=== PATIENT | female | born 1995 | race Caucasian/White ===

== ENCOUNTER 2022-05-23 13:42 | Emergency (ER) | payer OTHER, SELFPAY ==
--- NOTE | ~2022-05-23 | US_ITS ---
EXAMINATION: US ABDOMEN COMPLETE CLINICAL INFORMATION: Epigastric pain. COMPARISON: None TECHNIQUE: Real-time imaging of the abdominal viscera. Today's examination is mildly limited secondary to overlying bowel gas. FINDINGS: PANCREAS: Visualized portions of pancreas are normal in appearance. ABDOMINAL AORTA: The proximal and mid segments are normal in caliber. The distal segment is obscured by overlying bowel gas and therefore not evaluated. INFERIOR VENA CAVA: Visualized portions are normal. LIVER: The liver is normal in size. The liver contour is normal. Liver echogenicity is increased diffusely. No focal hepatic lesion. There is no intrahepatic biliary duct dilatation seen. GALLBLADDER: The gallbladder is physiologically distended. 6 mm echogenic, nonshadowing focus contiguous with the gallbladder wall is most suggestive of a polyp. No definitive shadowing gallstones identified. No gallbladder wall thickening or pericholecystic fluid appreciated. Negative sonographic Messina's sign. COMMON BILE DUCT: Normal in caliber measuring 0.4 cm in diameter. RIGHT KIDNEY: Normal. No hydronephrosis. No renal calculi or focal parenchymal lesions. The kidney measures 11.5 cm in maximum dimension. LEFT KIDNEY: Normal. No hydronephrosis. No renal calculi or focal parenchymal lesions. The kidney measures 11.5 cm in maximum dimension. SPLEEN: Normal. The spleen measures 11.2 cm in maximum dimension. FREE FLUID: None. US/US abdomen complete IMPRESSION: 1. Diffusely increased liver echogenicity. This is a nonspecific finding but most suggestive of hepatic steatosis. Correlation with liver enzymes recommended. 2. Suspected 6 mm gallbladder polyp. Follow-up as clinically indicated.
--- NOTE | ~2022-05-23 | US_ITS ---
EXAMINATION: US OBSTETRICAL ULTRASOUND CLINICAL INFORMATION: Abdominal pain and ovarian pain COMPARISON: None. LMP: Not provided. Gestational age by maternal dates is not provided. Estimated date of delivery by maternal dates is not provided. TECHNIQUE: Ultrasound of the maternal pelvis is performed using transabdominal and transvaginal transducers. Transvaginal imaging is performed due to inadequate visualization transabdominally. M-mode Doppler is also performed. FINDINGS: There is a single intrauterine gestational sac with visible yolk sac, embryo, and cardiac activity. There is no significant subchorionic hemorrhage or hematoma. HR: 127 beats per minute. CRL (crown rump length): 0.6 cm (6 weeks 3 days +/- 4 days). MANJU (estimated date of delivery): 01/13/2023 +/- 4 days. MATERNAL ADNEXA: The right maternal ovary measures 4.0 x 2.6 x 3.8 cm. No adnexal mass. The left maternal ovary measures 3.2 x 2.0 x 2.1 cm. No adnexal mass. Normal color flow in the ovaries bilaterally. Normal arterial and venous spectral Doppler waveforms identified in the ovaries bilaterally. Nabothian cysts are seen in the cervix. There is no significant maternal adnexal mass. No maternal pelvic ascites. US/US OB pelvic and transvaginal IMPRESSION: 1. Single intrauterine gestation with ultrasound gestational age of 6 weeks 3 days +/- 4 days. 2. Estimated date of delivery is 01/13/2023 +/- 4 days. 3. No maternal adnexal mass or pelvic ascites.
--- NOTE | ~2022-05-23 | US_ITS ---
EXAMINATION: US OBSTETRICAL ULTRASOUND CLINICAL INFORMATION: Abdominal pain and ovarian pain COMPARISON: None. LMP: Not provided. Gestational age by maternal dates is not provided. Estimated date of delivery by maternal dates is not provided. TECHNIQUE: Ultrasound of the maternal pelvis is performed using transabdominal and transvaginal transducers. Transvaginal imaging is performed due to inadequate visualization transabdominally. M-mode Doppler is also performed. FINDINGS: There is a single intrauterine gestational sac with visible yolk sac, embryo, and cardiac activity. There is no significant subchorionic hemorrhage or hematoma. HR: 127 beats per minute. CRL (crown rump length): 0.6 cm (6 weeks 3 days +/- 4 days). MANJU (estimated date of delivery): 01/13/2023 +/- 4 days. MATERNAL ADNEXA: The right maternal ovary measures 4.0 x 2.6 x 3.8 cm. No adnexal mass. The left maternal ovary measures 3.2 x 2.0 x 2.1 cm. No adnexal mass. Normal color flow in the ovaries bilaterally. Normal arterial and venous spectral Doppler waveforms identified in the ovaries bilaterally. Nabothian cysts are seen in the cervix. There is no significant maternal adnexal mass. No maternal pelvic ascites. US/US pelvic ovarian doppler IMPRESSION: 1. Single intrauterine gestation with ultrasound gestational age of 6 weeks 3 days +/- 4 days. 2. Estimated date of delivery is 01/13/2023 +/- 4 days. 3. No maternal adnexal mass or pelvic ascites.
[2022-05-23 13:46] VITALS: BP 133/85; PULSE 101; RESP 18; TEMP 36.8; O2SAT 100; BMI 34.3
--- NOTE | 2022-05-23 13:46 | ED.ABDPAIN ---
HPI - Abdominal Pain General Chief Complaint: Abdominal Pain <CHASITY Rodgers - Last Filed: 05/23/22 13:50> Stated Complaint: Stomach pain <CHASITY Rodgers - Last Filed: 05/23/22 13:50> Time Seen by Provider: 05/23/22 14:12 <CHASITY Rodgers - Last Filed: 05/23/22 13:50> Source: patient <Grey Kaufman MD - Last Filed: 05/23/22 15:58> Mode of arrival: ambulatory <Grey Kaufman MD - Last Filed: 05/23/22 15:58> Limitations: no limitations <Grey Kaufman MD - Last Filed: 05/23/22 15:58> History of Present Illness HPI narrative: - 27yoF c PMHx of thyroid disease was presenting to the ED with complaints of 3-4 weeks of epigastric and lower abdominal pain near her ovaries. With associated vomiting every morning. Reports that her period is usually irregular. Although she remembers her last menstrual period being approximately 2 months ago although this can be normal for her on occasion. She reports occasional shortness of breath. She denies any other symptoms complaints or concerns at this time. patient states that she has known she has been for 5 days <Grey Kaufman MD - Last Filed: 05/23/22 15:58> MD elicited complaint: abdominal pain <Grey Kaufman MD - Last Filed: 05/23/22 15:58> Onset (ago): week(s) <Grey Kaufman MD - Last Filed: 05/23/22 15:58> Pain Consistency: intermittent <Grey Kaufman MD - Last Filed: 05/23/22 15:58> Location: suprapubic <Grey Kaufman MD - Last Filed: 05/23/22 15:58> Migration to: suprapubic <Grey Kaufman MD - Last Filed: 05/23/22 15:58> Associated symptoms: nausea and vomiting <Grey Kaufman MD - Last Filed: 05/23/22 15:58> Related Data Allergies/Adverse Reactions: Allergies Allergy/AdvReac Type Severity Reaction Status Date / Time aspirin [ASA] Allergy Intermediate RASH/SWELLI Verified 05/23/22 13:44 NG penicillin V Allergy Intermediate Rash Verified 05/23/22 13:44 Penicillins [PENICILLINS] Allergy Intermediate RASH/SWELLI Verified 05/23/22 13:44 NG <CHASITY Rodgers - Last Filed: 05/23/22 13:50> Review of Systems Review of Systems Yes all other systems are reviewed and are negative <Grey Kaufman MD - Last Filed: 05/23/22 15:58> Gastrointestinal: Reports abdominal pain <Grey Kafuman MD - Last Filed: 05/23/22 15:58> Genitourinary: Reports other (no period for 2 months) <Grey Kaufman MD - Last Filed: 05/23/22 15:58> [facility] Social History Social History: Social History Advance Directives: No <CHASITY Rodgers - Last Filed: 05/23/22 13:50> Physical Exam ED Vital Signs: Vital Signs - 24 hr 05/23/22 13:46 05/23/22 15:31 Temperature 98.3 F 98.4 F Pulse Rate 101 H 106 H Respiratory Rate 18 18 Blood Pressure 133/85 110/73 Pulse Oximetry 100 98 Oxygen Delivery Method Room Air Room Air BMI result Body Mass Index 34.3 <CHASITY Rodgers - Last Filed: 05/23/22 13:50> Vital Signs - 24 hr 05/23/22 13:46 05/23/22 15:31 Temperature 98.3 F 98.4 F Pulse Rate 101 H 106 H Respiratory Rate 18 18 Blood Pressure 133/85 110/73 Pulse Oximetry 100 98 Oxygen Delivery Method Room Air Room Air BMI result Body Mass Index 34.3 <Grey Kaufman MD - Last Filed: 05/23/22 15:58> Const General: healthy appearing <Grey Kaufman MD - Last Filed: 05/23/22 15:58> Nutritional Appearance: average body habitus <Grey Kaufman MD - Last Filed: 05/23/22 15:58> Orientation/consciousness: oriented to person and patient oriented x3 <Grey Kaufman MD - Last Filed: 05/23/22 15:58> Limitations: no limitations <Grey Kaufman MD - Last Filed: 05/23/22 15:58> HENMT Head: Yes normal to inspection <Grey Kaufman MD - Last Filed: 05/23/22 15:58> Ears: external ears normal <Grey Kaufman MD - Last Filed: 05/23/22 15:58> General nose exam: Normal external nose present <Grey Kaufman MD - Last Filed: 05/23/22 15:58> Mouth: Normal oral and palatal mucosa present and oropharynx normal <Grey Kaufman MD - Last Filed: 05/23/22 15:58> Throat: Yes posterior oropharynx normal <Grey Kaufman MD - Last Filed: 05/23/22 15:58> Eyes General: appearance normal, both eyes and all related structures <Grey Kaufman MD - Last Filed: 05/23/22 15:58> Neck Neck: Yes normal visual inspection <Grey Kaufman MD - Last Filed: 05/23/22 15:58> Chest Chest palpation & inspection: normal inspection of the chest <Grey Kaufman MD - Last Filed: 05/23/22 15:58> Resp Auscultation: clear to auscultation bilaterally <Grey Kaufman MD - Last Filed: 05/23/22 15:58> Cardio Jugular venous distension: no JVD <Grey Kaufman MD - Last Filed: 05/23/22 15:58> Rate: regular rate <Grey Kaufman MD - Last Filed: 05/23/22 15:58> Rhythm: regular rhythm <Grey Kaufman MD - Last Filed: 05/23/22 15:58> Heart sounds: S1 normal heart sound present and S2 normal heart sound present <Grey Kaufman MD - Last Filed: 05/23/22 15:58> GI Inspection: Yes normal to inspection <Grey Kaufman MD - Last Filed: 05/23/22 15:58> Palpation (GI): Soft to palpation, nontender and No hepatosplenomegaly present <Grey Kaufman MD - Last Filed: 05/23/22 15:58> Auscultation: normal bowel sounds <Grey Kaufman MD - Last Filed: 05/23/22 15:58> General: Yes no CVA tenderness <Grey Kaufman MD - Last Filed: 05/23/22 15:58> Back/Spine/Pelvis Back: no CVA tenderness <Grey Kaufman MD - Last Filed: 05/23/22 15:58> Skin General skin exam: no rashes or lesions noted <Grey Kaufman MD - Last Filed: 05/23/22 15:58> Neuro General: oriented to person and patient oriented x3 <Grey Kaufman MD - Last Filed: 05/23/22 15:58> Cranial nerves: Yes CN's II-XII intact bilaterally <Grey Kaufman MD - Last Filed: 05/23/22 15:58> Motor exam (neuro): 5/5 motor strength present throughout <Grey Kaufman MD - Last Filed: 05/23/22 15:58> Extrem General: Yes normal to inspection <Grey Kaufman MD - Last Filed: 05/23/22 15:58> Psych Appearance: grossly normal <Grey Kaufman MD - Last Filed: 05/23/22 15:58> Course Course Course Narrative: RME- 13:50pm - 27yoF c PMHx of thyroid disease was presenting to the ED with complaints of 3-4 weeks of epigastric and lower abdominal pain near her ovaries. With associated vomiting every morning. Reports that her period is usually irregular. Although she remembers her last menstrual period being approximately 2 months ago although this can be normal for her on occasion. She reports occasional shortness of breath. She denies any other symptoms complaints or concerns at this time. Plan: Labs, serum quant, pelvic/ovarian/Doppler and abdominal ultrasound along with a UA. Patient is stable and will be sent back to the waiting room to be evaluated in the ED. <CHASITY Rodgers - Last Filed: 05/23/22 13:50> Reevaluation(s) Reevaluation #1: patient with a single intrauterine will dc home <Grey Kaufman MD - Last Filed: 05/23/22 15:58> Time: 15:54 <Grey Kaufman MD - Last Filed: 05/23/22 15:58> Medical Decision Making Lab Data Result Diagrams: : 05/23/22 13:59 05/23/22 13:59 <CHASITY Rodgers - Last Filed: 05/23/22 13:50> Labs: Lab Results 05/23/22 05/23/22 05/23/22 Range/Units 13:59 13:59 13:59 WBC 12.0 H (4.8-10.8) X10*3/uL RBC 4.65 (4.20-5.50) X10*6/uL Hgb 14.3 (12.0-16.0) g/dl Hct 42.2 (37.0-47.0) % MCV 90.8 (80.0-98.0) fL MCH 30.8 (27.0-33.0) pg MCHC 33.9 (31.0-35.0) g/dl RDW 13.1 (11.0-16.0) % Plt Count 273 (160-400) X10*3/uL MPV 10.3 (9.4-12.3) fL Immature Gran % (Auto) 0.4 (0.0-0.4) % Neut % (Auto) 65.1 (45-73) % Lymph % (Auto) 26.3 (20-40) % Nuckolls % (Auto) 7.0 (2-11) % Eos % (Auto) 0.8 (0-4) % Baso % (Auto) 0.4 (0-2) % Lymph # (Auto) 3.2 (1.2-4.9) X10*3/uL Nuckolls # (Auto) 0.8 (0.1-1.2) X10*3/uL Eos # (Auto) 0.1 (0.0-0.4) X10*3/uL Baso # (Auto) 0.1 (0.0-0.2) X10*3/uL Abs Immat Gran (auto) 0.05 H (0.00-0.03) X10*3/uL Absolute Neuts (auto) 7.8 (2.0-8.3) x10*3/uL Absolute Nucleated RBC 0.000 (0.0-0.012) X10*3/uL Nucleated RBC % (auto) 0.0 (0.0-0.2) /100WBC PT 11.6 (10.0-13.1) SEC INR 1.0 (0.9-1.1) Sodium 138 (135-145) mmol/L Potassium 3.8 (3.3-5.1) mmol/L Chloride 107 (96-108) mmol/L Carbon Dioxide 22 (22-29) mmol/L Anion Gap 13 (12-20) BUN 8 L (9-16) mg/dL Creatinine 0.66 (0.5-1.4) mg/dL Estim Creat Clear Calc 138.4 Estimated GFR > 60 Random Glucose 84 (60-115) mg/dL Calcium 9.0 (8.4-10.2) mg/dL Magnesium 1.9 (1.6-2.6) mg/dL Total Bilirubin 0.3 (0.0-1.0) mg/dL AST 15 (5-31) U/L ALT 16 (0-31) U/L Alkaline Phosphatase 78 (39-117) U/L Total Protein 7.3 (6.5-8.0) g/dL Albumin 4.4 (3.5-5.0) g/dL Lipase 17 (8-78) U/L TSH (0.32-4.0) uIU/mL Beta HCG, Quant 86926 mIU/mL Urine Color Urine Appearance Urine pH (5.0-9.0) Ur Specific Rindge (1.005-1.025) Urine Protein (Neg-Trace) mg/dL Urine Glucose (UA) (Negative) mg/dL Urine Ketones (Negative) mg/dL Urine Blood (Negative) Urine Nitrite (Negative) Ur Leukocyte Esterase (Negative) 05/23/22 05/23/22 Range/Units 13:59 14:11 WBC (4.8-10.8) X10*3/uL RBC (4.20-5.50) X10*6/uL Hgb (12.0-16.0) g/dl Hct (37.0-47.0) % MCV (80.0-98.0) fL MCH (27.0-33.0) pg MCHC (31.0-35.0) g/dl RDW (11.0-16.0) % Plt Count (160-400) X10*3/uL MPV (9.4-12.3) fL Immature Gran % (Auto) (0.0-0.4) % Neut % (Auto) (45-73) % Lymph % (Auto) (20-40) % Nuckolls % (Auto) (2-11) % Eos % (Auto) (0-4) % Baso % (Auto) (0-2) % Lymph # (Auto) (1.2-4.9) X10*3/uL Nuckolls # (Auto) (0.1-1.2) X10*3/uL Eos # (Auto) (0.0-0.4) X10*3/uL Baso # (Auto) (0.0-0.2) X10*3/uL Abs Immat Gran (auto) (0.00-0.03) X10*3/uL Absolute Neuts (auto) (2.0-8.3) x10*3/uL Absolute Nucleated RBC (0.0-0.012) X10*3/uL Nucleated RBC % (auto) (0.0-0.2) /100WBC PT (10.0-13.1) SEC INR (0.9-1.1) Sodium (135-145) mmol/L Potassium (3.3-5.1) mmol/L Chloride (96-108) mmol/L Carbon Dioxide (22-29) mmol/L Anion Gap (12-20) BUN (9-16) mg/dL Creatinine (0.5-1.4) mg/dL Estim Creat Clear Calc Estimated GFR Random Glucose (60-115) mg/dL Calcium (8.4-10.2) mg/dL Magnesium (1.6-2.6) mg/dL Total Bilirubin (0.0-1.0) mg/dL AST (5-31) U/L ALT (0-31) U/L Alkaline Phosphatase (39-117) U/L Total Protein (6.5-8.0) g/dL Albumin (3.5-5.0) g/dL Lipase (8-78) U/L TSH 3.03 (0.32-4.0) uIU/mL Beta HCG, Quant mIU/mL Urine Color Yellow Urine Appearance Clear Urine pH 5.5 (5.0-9.0) Ur Specific Rindge >= 1.030 H (1.005-1.025) Urine Protein Negative (Neg-Trace) mg/dL Urine Glucose (UA) Negative (Negative) mg/dL Urine Ketones Trace (Negative) mg/dL Urine Blood Negative (Negative) Urine Nitrite Negative (Negative) Ur Leukocyte Esterase Negative (Negative) <CHASITY Rodgers - Last Filed: 05/23/22 13:50> Lab Results 05/23/22 05/23/22 05/23/22 Range/Units 13:59 13:59 13:59 WBC 12.0 H (4.8-10.8) X10*3/uL RBC 4.65 (4.20-5.50) X10*6/uL Hgb 14.3 (12.0-16.0) g/dl Hct 42.2 (37.0-47.0) % MCV 90.8 (80.0-98.0) fL MCH 30.8 (27.0-33.0) pg MCHC 33.9 (31.0-35.0) g/dl RDW 13.1 (11.0-16.0) % Plt Count 273 (160-400) X10*3/uL MPV 10.3 (9.4-12.3) fL Immature Gran % (Auto) 0.4 (0.0-0.4) % Neut % (Auto) 65.1 (45-73) % Lymph % (Auto) 26.3 (20-40) % Nuckolls % (Auto) 7.0 (2-11) % Eos % (Auto) 0.8 (0-4) % Baso % (Auto) 0.4 (0-2) % Lymph # (Auto) 3.2 (1.2-4.9) X10*3/uL Nuckolls # (Auto) 0.8 (0.1-1.2) X10*3/uL Eos # (Auto) 0.1 (0.0-0.4) X10*3/uL Baso # (Auto) 0.1 (0.0-0.2) X10*3/uL Abs Immat Gran (auto) 0.05 H (0.00-0.03) X10*3/uL Absolute Neuts (auto) 7.8 (2.0-8.3) x10*3/uL Absolute Nucleated RBC 0.000 (0.0-0.012) X10*3/uL Nucleated RBC % (auto) 0.0 (0.0-0.2) /100WBC PT 11.6 (10.0-13.1) SEC INR 1.0 (0.9-1.1) Sodium 138 (135-145) mmol/L Potassium 3.8 (3.3-5.1) mmol/L Chloride 107 (96-108) mmol/L Carbon Dioxide 22 (22-29) mmol/L Anion Gap 13 (12-20) BUN 8 L (9-16) mg/dL Creatinine 0.66 (0.5-1.4) mg/dL Estim Creat Clear Calc 138.4 Estimated GFR > 60 Random Glucose 84 (60-115) mg/dL Calcium 9.0 (8.4-10.2) mg/dL Magnesium 1.9 (1.6-2.6) mg/dL Total Bilirubin 0.3 (0.0-1.0) mg/dL AST 15 (5-31) U/L ALT 16 (0-31) U/L Alkaline Phosphatase 78 (39-117) U/L Total Protein 7.3 (6.5-8.0) g/dL Albumin 4.4 (3.5-5.0) g/dL Lipase 17 (8-78) U/L TSH (0.32-4.0) uIU/mL Beta HCG, Quant 32707 mIU/mL Urine Color Urine Appearance Urine pH (5.0-9.0) Ur Specific Rindge (1.005-1.025) Urine Protein (Neg-Trace) mg/dL Urine Glucose (UA) (Negative) mg/dL Urine Ketones (Negative) mg/dL Urine Blood (Negative) Urine Nitrite (Negative) Ur Leukocyte Esterase (Negative) 05/23/22 05/23/22 Range/Units 13:59 14:11 WBC (4.8-10.8) X10*3/uL RBC (4.20-5.50) X10*6/uL Hgb (12.0-16.0) g/dl Hct (37.0-47.0) % MCV (80.0-98.0) fL MCH (27.0-33.0) pg MCHC (31.0-35.0) g/dl RDW (11.0-16.0) % Plt Count (160-400) X10*3/uL MPV (9.4-12.3) fL Immature Gran % (Auto) (0.0-0.4) % Neut % (Auto) (45-73) % Lymph % (Auto) (20-40) % Nuckolls % (Auto) (2-11) % Eos % (Auto) (0-4) % Baso % (Auto) (0-2) % Lymph # (Auto) (1.2-4.9) X10*3/uL Nuckolls # (Auto) (0.1-1.2) X10*3/uL Eos # (Auto) (0.0-0.4) X10*3/uL Baso # (Auto) (0.0-0.2) X10*3/uL Abs Immat Gran (auto) (0.00-0.03) X10*3/uL Absolute Neuts (auto) (2.0-8.3) x10*3/uL Absolute Nucleated RBC (0.0-0.012) X10*3/uL Nucleated RBC % (auto) (0.0-0.2) /100WBC PT (10.0-13.1) SEC INR (0.9-1.1) Sodium (135-145) mmol/L Potassium (3.3-5.1) mmol/L Chloride (96-108) mmol/L Carbon Dioxide (22-29) mmol/L Anion Gap (12-20) BUN (9-16) mg/dL Creatinine (0.5-1.4) mg/dL Estim Creat Clear Calc Estimated GFR Random Glucose (60-115) mg/dL Calcium (8.4-10.2) mg/dL Magnesium (1.6-2.6) mg/dL Total Bilirubin (0.0-1.0) mg/dL AST (5-31) U/L ALT (0-31) U/L Alkaline Phosphatase (39-117) U/L Total Protein (6.5-8.0) g/dL Albumin (3.5-5.0) g/dL Lipase (8-78) U/L TSH 3.03 (0.32-4.0) uIU/mL Beta HCG, Quant mIU/mL Urine Color Yellow Urine Appearance Clear Urine pH 5.5 (5.0-9.0) Ur Specific Rindge >= 1.030 H (1.005-1.025) Urine Protein Negative (Neg-Trace) mg/dL Urine Glucose (UA) Negative (Negative) mg/dL Urine Ketones Trace (Negative) mg/dL Urine Blood Negative (Negative) Urine Nitrite Negative (Negative) Ur Leukocyte Esterase Negative (Negative) <Grey Kaufman MD - Last Filed: 05/23/22 15:58> Radiology Impression Discussion of test interpretation with radiology: I have reviewed the radiologist's reading. <Grey Kaufman MD - Last Filed: 05/23/22 15:58> Radiologist Impression: US/US OB pelvic and transvaginal IMPRESSION: 1. Single intrauterine gestation with ultrasound gestational age of? 6 weeks 3 days +/- 4 days. 2. Estimated date of delivery is 01/13/2023 +/- 4 days. 3. No maternal adnexal mass or pelvic ascites. Dictated By: Bassem Frausto MD Signed By: <Electronically signed by Bassem Frausto MD in OV> 05/23/22 1530 <Grey Kaufman MD - Last Filed: 05/23/22 15:58> Discharge Plan Discharge Clinical Impression: Intrauterine <CHASITY Rodgers - Last Filed: 05/23/22 13:50> Patient Disposition: Home, Self-Care <CHASITY Rodgers - Last Filed: 05/23/22 13:50> Instructions: at 11 to 14 Weeks (ED) <CHASITY Rodgers - Last Filed: 05/23/22 13:50> Referrals: Julito Addison MD [Physician] - 1 week <CHASITY Rodgers - Last Filed: 05/23/22 13:50>
[2022-05-23 14:03] LABS: MANUAL DIFF FLAG NO
[2022-05-23 14:04] LABS: Basophils Absolute Auto 0.1 X10*3/uL (0.0-0.2); Basophils Percent Auto 0.4 % (0-2); Eosinophils Absolute Auto 0.1 X10*3/uL (0.0-0.4); Eosinophils Percent Auto 0.8 % (0-4); Hematocrit 42.2 % (37.0-47.0); Hemoglobin 14.3 g/dl (12.0-16.0); Imm Gran Abs Auto 0.05 X10*3/uL (0.00-0.03); Imm Gran Pct Auto 0.4 % (0.0-0.4); Lymphocytes Absolute Auto 3.2 X10*3/uL (1.2-4.9); Lymphocytes Percent Auto 26.3 % (20-40); Mean Corpuscular HGB Conc 33.9 g/dl (31.0-35.0); Mean Corpuscular Hemoglobin 30.8 pg (27.0-33.0); Mean Corpuscular Volume 90.8 fL (80.0-98.0); Mean Platelet Volume 10.3 fL (9.4-12.3); Monocytes Absolute Auto 0.8 X10*3/uL (0.1-1.2); Neutrophils Absolute Auto 7.8 x10*3/uL (2.0-8.3); Neutrophils Percent Auto 65.1 % (45-73); Platelet Count 273 X10*3/uL (160-400); Red Blood Count 4.65 X10*6/uL (4.20-5.50); Red Cell Distribution Width 13.1 % (11.0-16.0)
[2022-05-23 14:21] LABS: Prothrombin Time 11.6 SEC (10.0-13.1)
[2022-05-23 14:24] LABS: Appearance Urine Clear; Color Urine Yellow; Glucose Urine UA Negative (Negative); Leukocyte Esterase Urine Negative (Negative); Nitrite Urine Negative (Negative); PH 5.5 (5.0-9.0); Specific Gravity - Urine >= 1.030 (1.005-1.025); Urine Blood Negative (Negative); Urine Ketones Trace mg/dL (Negative); Urine Protein Negative (Neg-Trace)
[2022-05-23 14:36] LABS: TSH reflex Free T4 3.03 uIU/mL (0.32-4.0)
[2022-05-23 14:37] LABS: Alanine Aminotransferase 16 U/L (0-31); Albumin Level 4.4 g/dL (3.5-5.0); Alkaline Phosphatase 78 U/L (39-117); Anion Gap 13 (12-20); Aspartate Amino Transferase 15 U/L (5-31); Bilirubin Total 0.3 mg/dL (0.0-1.0); Blood Urea Nitrogen 8 mg/dL (9-16); Carbon Dioxide 22 mmol/L (22-29); Chloride 107 mmol/L (96-108); Creatinine Clr Calc Pharmacy 138.4; Estimated Glomerular Filt Rate > 60; Glucose Random 84 mg/dL (60-115); Lipase 17 U/L (8-78); Magnesium 1.9 mg/dL (1.6-2.6); Potassium 3.8 mmol/L (3.3-5.1); Sodium 138 mmol/L (135-145); Total Protein 7.3 g/dL (6.5-8.0)
[2022-05-23 15:31] VITALS: BP 110/73; PULSE 106; RESP 18; TEMP 36.9; O2SAT 98
== END 2022-05-23 16:16 | disposition home or self-care (01) ==
PROVIDERS: Physician Assistant Medical; Emergency Provider Emergency Medicine
DX: O21.9 Vomiting of pregnancy, unspecified (principal); Z3A.01 Less than 8 weeks gestation of pregnancy
CPT/HCPCS: 36415; 76700; 76801; 76817; 80053; 81003; 83690; 83735; 84443; 84702; 85025; 85610; 93975; 99283; 99284

== ENCOUNTER 2024-04-10 06:52 | Emergency (ER) | payer OTHER, SELFPAY ==
[2024-04-10 06:57] VITALS: BP 131/82; PULSE 82; RESP 16; TEMP 36.6; O2SAT 98; BMI 33.5
--- NOTE | 2024-04-10 07:11 | ECG_ITS ---
Test Reason : chest pain Blood Pressure : / mmHG Vent. Rate : 074 BPM Atrial Rate : 074 BPM P-R Int : 182 ms QRS Dur : 078 ms QT Int : 392 ms P-R-T Axes : 026 025 015 degrees QTc Int : 435 ms Normal sinus rhythm with sinus arrhythmia Normal ECG No previous ECGs available Referred By: Mallorie Saldana Electronically Signed By:SHEREEN SILVA MD
--- NOTE | 2024-04-10 07:11 | ED.GENADULT ---
HPI - General Adult General Chief complaint: Abdominal Pain Stated complaint: stomach pain w/ some chest pain Time Seen by Provider: 04/10/24 07:11 Source: patient and family Mode of arrival: ambulatory Limitations: no limitations History of Present Illness ED Provider: Shana [facility] narrative: Patient is a 29-year-old female with history of presenting to the ED with complaint of epigastric pain for the past 3 days. Describes as epigastric and under left breast, radiating to chest at times. Denies nausea, vomiting, diarrhea. Denies dyspnea, cough, palpitations. Denies fevers. Has not tried any OTC medications prior to arrival. complaint: epigastric pain Onset (ago): day(s) Location: abdomen Severity: moderate Quality: burning Pain Consistency: constant Associated symptoms: denies other symptoms Treatments prior to arrival: none Related Data Previous Rx's ?Medication ?Instructions ?Recorded omeprazole 20 mg capsule,delayed 20 mg PO BID #28 caps 04/10/24 release Allergies Allergy/AdvReac Type Severity Reaction Status Date / Time aspirin [ASA] Allergy Intermediate RASH/SWELLI Verified 04/10/24 06:58 NG penicillin V Allergy Intermediate Rash Verified 04/10/24 06:58 Penicillins [PENICILLINS] Allergy Intermediate RASH/SWELLI Verified 04/10/24 06:58 NG Review of Systems Review of Systems: As per HPI. Yes all other systems are reviewed and are negative Constitutional: Constitutional: Reports as per HPI [facility] Social History Social History Advance Directives: No Advance Directives Information Provided: Yes Physical Exam ED Vital Signs: Vital Signs - 24 hr 04/10/24 06:57 Temperature 97.9 F Pulse Rate 82 Respiratory Rate 16 Blood Pressure 131/82 Pulse Oximetry 98 Oxygen Delivery Method Room Air BMI result Body Mass Index 33.5 Vital signs have been reviewed and appear to be correct. Blood pressure normal. Heart rate normal. Respiratory rate normal. Temperature normal. Oxygen saturation normal. Const General: cooperative, healthy appearing and no acute distress Orientation/consciousness: oriented to person, oriented to place, oriented to time and patient oriented x3 Limitations: no limitations HENMT Head: Yes normocephalic and Yes atraumatic Ears: external ears normal General nose exam: Normal external nose present Face and sinus: Yes face symmetric Mouth: oropharynx normal and moist mucous membranes Throat: Yes uvula midline Eyes Pupils: Equal, round and reactive pupils present Neck Neck: Yes normal visual inspection and Yes supple Resp Effort & Inspection: normal respiratory effort and able to speak in complete sentences Auscultation: clear to auscultation bilaterally Cardio Rate: regular rate Rhythm: regular rhythm Heart sounds: S1 normal heart sound present and S2 normal heart sound present GI Inspection: Yes normal to inspection Palpation (GI): Soft to palpation and Tenderness to palpation present (GI) in the epigastrum Auscultation: normoactive bowel sounds General: Yes no CVA tenderness Back/Spine/Pelvis Back: no CVA tenderness Skin General skin exam: elasticity normal and turgor normal Neuro General: oriented to person, oriented to place, oriented to time, patient oriented x3, moves all extremities, no focal motor deficits and CN's II-XI intact bilaterally Cranial nerves: Yes Equal, round and reactive pupils present Cognition (Neuro): normal cognition Extrem General: Yes full ROM, Yes no pedal edema and Yes no calf tenderness Psych Mental Status: mental status grossly normal Affect: normal affect Thought process: Normal thought process present Medications Administered Discontinued Medications Generic Name Dose Route Start Last Admin Trade Name Freq PRN Reason Stop Dose Admin Al Hydroxide/Mg Hydroxide 15 ml 04/10/24 07:57 04/10/24 08:50 Magnesium Hydrox/Alum Hydrox 30 Ml Oral.Susp PO 04/10/24 07:58 15 ml ONCE ONE Administration Lidocaine HCl 5 ml 04/10/24 07:57 04/10/24 08:50 Lidocaine Hcl Viscous 2 % 15 Ml Solution MUCOUS MEM 04/10/24 07:58 5 ml ONCE ONE Administration Medical Decision Making Medical Decision Making [facility] Narrative: Patient is a 29-year-old female with history of presenting to the ED with complaint of epigastric pain for the past 3 days. On exam patient is awake, A+Ox3, VS WNL, afebrile, normal neurological exam without focal deficits, physical exam findings as above. Given reported symptoms and physical exam findings, initial differential includes gastritis, GERD, PUD. Less likely cholecystitis, pancreatitis. Do not suspect ACS. EKG shows normal sinus rhythm. Viral serology negative. Labs unremarkable, troponin negative, normal transaminases, neg HCG. Symptoms improved with medication given in the ED. Feel patient is stable for discharge, will start on omeprazole. Follow up with PCP. Return precautions discussed. Patient verbalized understanding of and agreement with plan. Differential Diagnosis Differential Diagnoses: The differential diagnosis associated with the presentation includes As per [facility] Lab Data [facility] Lab Attestation statement: I reviewed the patient's lab results. As per [facility] 04/10/24 07:34 04/10/24 07:34 Labs: Lab Results 04/10/24 04/10/24 Range/Units 07:34 07:43 WBC 10.3 (4.8-10.8) X10*3/uL RBC 4.53 (4.20-5.50) X10*6/uL Hgb 13.8 (12.0-16.0) g/dl Hct 40.9 (37.0-47.0) % MCV 90.3 (80.0-98.0) fL MCH 30.5 (27.0-33.0) pg MCHC 33.7 (31.0-35.0) g/dl RDW 13.1 (11.0-16.0) % Plt Count 265 (160-400) X10*3/uL MPV 10.1 (9.4-12.3) fL Immature Gran % (Auto) 0.3 (0.0-0.4) % Neut % (Auto) 61.5 (45-73) % Lymph % (Auto) 31.6 (20-40) % [place] % (Auto) 5.3 (2-11) % Eos % (Auto) 1.0 (0-4) % Baso % (Auto) 0.3 (0-2) % Lymph # (Auto) 3.3 (1.2-4.9) X10*3/uL [place] # (Auto) 0.6 (0.1-1.2) X10*3/uL Eos # (Auto) 0.1 (0.0-0.4) X10*3/uL Baso # (Auto) 0.0 (0.0-0.2) X10*3/uL Abs Immat Gran (auto) 0.03 (0.00-0.03) X10*3/uL Absolute Neuts (auto) 6.4 (2.0-8.3) x10*3/uL Absolute Nucleated RBC 0.000 (0.0-0.012) X10*3/uL Nucleated RBC % (auto) 0.0 (0.0-0.2) /100WBC Sodium 142 (135-145) mmol/L Potassium 4.4 (3.3-5.1) mmol/L Chloride 111 H (96-108) mmol/L Carbon Dioxide 21 L (22-29) mmol/L Anion Gap 14 (12-20) BUN 10 (9-16) mg/dL Creatinine 0.66 (0.5-1.4) mg/dL Estim Creat Clear Calc 134.1 Estimated GFR > 60 Random Glucose 101 (60-115) mg/dL Calcium 9.3 (8.4-10.2) mg/dL Total Bilirubin 0.2 (0.0-1.0) mg/dL AST 19 (5-31) U/L ALT 14 (0-31) U/L Alkaline Phosphatase 95 (39-117) U/L Troponin I High Sens < 2.7 (<3.5-17.0) ng/L Total Protein 7.1 (6.5-8.0) g/dL Albumin 4.1 (3.5-5.0) g/dL Amylase 66 (28-100) U/L Lipase 24 (8-78) U/L Beta HCG, Quant < 2 mIU/mL Influenza Type A (PCR) NEGATIVE (Negative) Influenza Type B (PCR) NEGATIVE (Negative) RSV RNA Qual (PCR) NEGATIVE (Negative) SARS-CoV-2 RNA (RT-PCR) NEGATIVE (Negative) Independent Interpretation I performed an independent interpretation of an: EKG (normal sinus rhythm, rate 74bpm, normal CA interval and QTc) Independent Historian Clinical information obtained from an independent historian. History obtained from or confirmed by: Spouse External Record Review External record reviewed: Inpatient record, Office record and Outpatient record Prescription Management I considered prescription management with: Other Discharge Plan Discharge Clinical Impression: Acute epigastric pain Patient Disposition: Home, Self-Care Instructions: Gastroesophageal Reflux Disease (DC), Epigastric Pain (ED), Upper Endoscopy (DC) Additional Instructions: You were evaluated in the emergency department today for epigastric pain. Your evaluation did not reveal evidence of conditions requiring emergent medical treatment at this time. It is likely that your symptoms are due to GERD (gastroesophageal reflux disease). You are being prescribed omeprazole, take this as prescribed, and follow up with your primary care provider. You can also use [id number] Maalox. Return if you develop persistent vomiting, fever, worsening pain, or other new/concerning symptoms. Prescriptions: New omeprazole 20 mg capsule,delayed release(DR/EC) 20 mg PO BID Qty: 28 0RF Print Language: Portuguese
[2024-04-10 07:38] LABS: MANUAL DIFF FLAG NO
[2024-04-10 07:41] LABS: Basophils Percent Auto 0.3 % (0-2); Eosinophils Absolute Auto 0.1 X10*3/uL (0.0-0.4); Hematocrit 40.9 % (37.0-47.0); Hemoglobin 13.8 g/dl (12.0-16.0); Imm Gran Abs Auto 0.03 X10*3/uL (0.00-0.03); Imm Gran Pct Auto 0.3 % (0.0-0.4); Lymphocytes Absolute Auto 3.3 X10*3/uL (1.2-4.9); Lymphocytes Percent Auto 31.6 % (20-40); Mean Corpuscular HGB Conc 33.7 g/dl (31.0-35.0); Mean Corpuscular Hemoglobin 30.5 pg (27.0-33.0); Mean Corpuscular Volume 90.3 fL (80.0-98.0); Mean Platelet Volume 10.1 fL (9.4-12.3); Monocytes Absolute Auto 0.6 X10*3/uL (0.1-1.2); Monocytes Percent Auto 5.3 % (2-11); Neutrophils Absolute Auto 6.4 x10*3/uL (2.0-8.3); Neutrophils Percent Auto 61.5 % (45-73); Platelet Count 265 X10*3/uL (160-400); Red Blood Count 4.53 X10*6/uL (4.20-5.50); Red Cell Distribution Width 13.1 % (11.0-16.0); White Blood Count 10.3 X10*3/uL (4.8-10.8)
[2024-04-10 08:09] LABS: Amylase 66 U/L (28-100)
[2024-04-10 08:12] LABS: Troponin-I High Sensitivity < 2.7 ng/L (<3.5-17.0)
[2024-04-10 08:22] LABS: Alanine Aminotransferase 14 U/L (0-31); Albumin Level 4.1 g/dL (3.5-5.0); Alkaline Phosphatase 95 U/L (39-117); Anion Gap 14 (12-20); Aspartate Amino Transferase 19 U/L (5-31); Bilirubin Total 0.2 mg/dL (0.0-1.0); Blood Urea Nitrogen 10 mg/dL (9-16); Calcium 9.3 mg/dL (8.4-10.2); Carbon Dioxide 21 mmol/L (22-29); Chloride 111 mmol/L (96-108); Creatinine Clr Calc Pharmacy 134.1; Estimated Glomerular Filt Rate > 60; Glucose Random 101 mg/dL (60-115); HCG Quantitative < 2 mIU/mL; Lipase 24 U/L (8-78); Potassium 4.4 mmol/L (3.3-5.1); Sodium 142 mmol/L (135-145); Total Protein 7.1 g/dL (6.5-8.0)
[2024-04-10 08:28] LABS: Influenza A PCR NEGATIVE (Negative); Influenza B PCR NEGATIVE (Negative); Resp Syncy Virus RNA Qual PCR NEGATIVE (Negative); SARS COV2 PCR INHOUSE NEGATIVE (Negative)
[2024-04-10] MEDS: Lidocaine HCl Viscous 2 % 15 ML SOLUTION 5 ML MUCOUS MEM (08:50)
[2024-04-10] MEDS: Magnesium Hydrox/Alum Hydrox 30 ML ORAL.SUSP 15 ML PO (08:50)
[2024-04-10 09:41] VITALS: BP 103/54; PULSE 62; RESP 16; TEMP 36.9; O2SAT 99
[2024-04-10 09:53] VITALS: BP 103/54; PULSE 62; RESP 16; TEMP 36.9; O2SAT 99
== END 2024-04-10 09:55 | disposition home or self-care (01) ==
PROVIDERS: Registered Nurse Emergency; Emergency Provider Student in an Organized Health Care Education/Training Program
DX: R10.13 Epigastric pain (principal); R07.9 Chest pain, unspecified; Z03.818 Encounter for observation for suspected exposure to other biological agents ruled out; Z79.899 Other long term (current) drug therapy
CPT/HCPCS: 0241U; 36415; 80053; 82150; 83690; 84484; 84702; 85025; 93005; 99283; 99284

== ENCOUNTER → 2024-04-10 07:11 | Outpatient (BNV) | payer OTHER, SELFPAY | PROVIDERS: Emergency Provider Student in an Organized Health Care Education/Training Program; Visit Provider Internal Medicine Cardiovascular Disease | DX: R07.9 Chest pain, unspecified (principal) | CPT/HCPCS: 93010 ==